=== PATIENT | female | born 1970 ===

== ENCOUNTER 2018-04-11 09:03 | Emergency (ER) | payer OTHER | END 2018-04-11 12:47 | disposition home or self-care (01) | LOC: C.ER 09:03 ==

== ENCOUNTER 2018-05-01 09:23 | Emergency (ER) | payer OTHER ==
[2018-05-01 09:43] VITALS: BP 119/77; PULSE 69; RESP 18; O2SAT 99
--- NOTE | 2018-05-01 10:20 | C.PDOC ---
History Of Present Illness 48 y/o female presents to the ER c/o sensitivity to ear b/l and itchiness to ears b/l for x2-3 days. No ear drops or medication use. Pt had similar sx in past and was told she had ear wax. Pt does not have a PMD. Pt denies ear discharge, fever and chills. Time Seen by Provider: 05/01/18 09:58 Chief Complaint (Nursing): ENT Problem History Per: Patient History/Exam Limitations: None Onset/Duration Of Symptoms: Days (x2-3) Current Symptoms Are (Timing): Still Present Past Medical History Reviewed: Historical Data, Nursing Documentation, Vital Signs Vital Signs: Last Vital Signs Temp Pulse 69 05/01/18 09:41 Resp 18 05/01/18 09:41 BP 119/77 05/01/18 09:41 Pulse Ox 99 05/01/18 09:41 Family History: States: No Known Family Hx - Social History Hx Alcohol Use: No Hx Substance Use: No - Immunization History Hx Tetanus Toxoid Vaccination: No Hx Influenza Vaccination: Yes Hx Pneumococcal Vaccination: No Review Of Systems Except As Marked, All Systems Reviewed And Found Negative. Constitutional: Negative for: Fever, Chills ENT: Positive for: Other (sensitivity and itchiness to b/l ears). Negative for: Ear Discharge Physical Exam - Physical Exam Appears: Non-toxic, No Acute Distress Skin: Warm, Dry Head: Normacephalic Eye(s): bilateral: Normal Inspection Ear(s): Left: Other (mild edema and redness to Right external auditory canal ), Bilateral: Normal (b/l TM) Cardiovascular: Rhythm Regular Respiratory: Normal Breath Sounds Neurological/Psych: Oriented x3, Normal Speech ED Course And Treatment O2 Sat by Pulse Oximetry: 99 (RA) Pulse Ox Interpretation: Normal Medical Decision Making Medical Decision Making: Initial impression: otitis externa plan: --d/c with ear drops Disposition - Disposition Referrals: William Courtney MD [Staff Provider] - Disposition: HOME/ ROUTINE Disposition Time: 10:17 Condition: GOOD Additional Instructions: Thank you for letting us take care of you today. Return to the ER if your symptoms worsen, or if any problems. Take the medication listed below as prescribed. Call the phone number listed below to make an appointment with the [facility] doctor. Prescriptions: Neomycin/Polymyxin/Hydrocortis [Cortisporin Otic Susp] 1 drop AU QID #1 bottle Instructions: Outer Ear Infection (DC) Print Language: GHANAIAN - POA Present On Arrival: None - Clinical Impression Clinical Impression: Abnormal ear sensation, Otitis externa - Scribe Statement The provider has reviewed the documentation as recorded by the Scribe Jennifer Kowalski Provider Attestation: All medical record entries made by the Scribe were at my direction and personally dictated by me. I have reviewed the chart and agree that the record accurately reflects my personal performance of the history, physical exam, medical decision making, and the department course for this patient. I have also personally directed, reviewed, and agree with the discharge instructions and disposition.
== END 2018-05-01 10:36 | disposition home or self-care (01) ==
LOC: C.ER 09:23
DX: H60.93 Unspecified otitis externa, bilateral (principal)

== ENCOUNTER 2018-06-06 09:38 | Emergency (ER) | payer OTHER ==
[2018-06-06 09:46] VITALS: TEMP 98.7
--- NOTE | 2018-06-06 10:13 | C.PDOC ---
History Of Present Illness 48 year old female with PMHx of vertigo and hemorrhoids presents to the ED complaining of right upper leg pain for one day. Reports pain is worse when she walks or bears weight on the leg. Denies prior presentation of pain. Denies any abdominal pain, back pain, or urinary symptoms. Denies any trauma, falls, or sleeping in a different position. Denies history of blood clots. Denies taking any medications for the pain. Patient also requests referral for specialist for vertigo, currently asymptomatic. Chief Complaint (Nursing): Lower Extremity Problem/Injury History Per: Patient History/Exam Limitations: no limitations Onset/Duration Of Symptoms: Days (1) Current Symptoms Are (Timing): Still Present Past Medical History Reviewed: Historical Data, Nursing Documentation, Vital Signs Vital Signs: Last Vital Signs Temp 98.7 F 06/06/18 09:41 Pulse 67 06/06/18 09:41 Resp 20 06/06/18 09:41 BP 112/73 06/06/18 09:41 Pulse Ox 100 06/06/18 09:41 - Medical History Other PMH: Vertigo, Hemorrhoids Surgical History: Other Surgeries: Hemorrhoids Family History: States: No Known Family Hx - Social History Hx Alcohol Use: No Hx Substance Use: No - Immunization History Hx Tetanus Toxoid Vaccination: No Hx Influenza Vaccination: Yes Hx Pneumococcal Vaccination: No Review Of Systems Gastrointestinal: Negative for: Abdominal Pain Genitourinary: Negative for: Dysuria, Hematuria Musculoskeletal: Positive for: Leg Pain (right upper ). Negative for: Back Pain Neurological: Negative for: Weakness, Numbness Physical Exam - Physical Exam Appears: Non-toxic, No Acute Distress Skin: Warm, Dry Head: Normacephalic Neck: Supple Chest: Symmetrical Cardiovascular: Rhythm Regular Respiratory: No Rales, No Rhonchi, No Wheezing Gastrointestinal/Abdominal: Soft, No Tenderness, No Guarding, No Rebound Extremity: Tenderness (right upper lateral leg tenderness ), Capillary Refill (less than 2 sec ), Other (Neg Carter's sign) Extremity: Bilateral: Normal Color And Temperature, Normal ROM Pulses: Left Dorsalis Pedis: Normal, Right Dorsalis Pedis: Normal Neurological/Psych: Oriented x3, Normal Speech Gait: Steady ED Course And Treatment O2 Sat by Pulse Oximetry: 100 (RA) Pulse Ox Interpretation: Normal Medical Decision Making Medical Decision Making: Impression: Right lateral upper leg pain Plan - Tylenol 650mg PO - POC Urine Preg - Venous Duplex Scan RLE - XR right hip/pelvis 1206 normal neuro exam, no vertigo imaging unremarkable vascular studies unremarkable pain improved, clear for d/c home with return indications and f/u Disposition - Disposition Referrals: Barber Bee MD [Staff Provider] - [facility] [Outside] [facility] [Outside] [facility] [Outside] Rod Sequeira MD [Staff Provider] - Disposition Time: 12:06 Condition: GOOD Additional Instructions: DARRIN ALMODOVAR, thank you for letting us take care of you today. Your provider was Ilya Barbosa and you were treated for LEG PAIN. The emergency medical care you received today was directed at your acute symptoms. If you were prescribed any medication, please fill it and take as directed. It may take several days for your symptoms to resolve. Return to the Emergency Department if your symptoms worsen, do not improve, or if you have any other problems. Please contact your doctor or call one of the physicians/clinics you have been referred to that are listed on the Patient Visit Information form that is included in your discharge packet. Bring any paperwork you were given at discharge with you along with any medications you are taking to your follow up visit. Our treatment cannot replace ongoing medical care by a primary care provider outside of the emergency department. Thank you for allowing the [facility] team to be part of your care today. If you had an X-Ray or CT scan: A Radiologist will review the ED reading if any change in treatment is needed we will contact you. If you had a blood, urine, or wound culture: It will take several days for the results, if any change in treatment is needed we will contact you. If you had an STI test: It will take 48 hours for the results. Please call after 1 week if you have not heard back. Instructions: Muscle and Bone Pain (DC), Joint Pain Forms: [facility] (Slovenian) - Clinical Impression Clinical Impression: Joint pain - Scribe Statement The provider has reviewed the documentation as recorded by the Scribe Ruby Ni All medical record entries made by the Scribe were at my direction and personally dictated by me. I have reviewed the chart and agree that the record accurately reflects my personal performance of the history, physical exam, medical decision making, and the department course for this patient. I have also personally directed, reviewed, and agree with the discharge instructions and disposition.
[2018-06-06 12:22] VITALS: BP 132/81; PULSE 84; RESP 16; O2SAT 98
--- NOTE | 2018-06-06 12:59 | RAD ---
Pelvis and right hip two views HISTORY: Pain. Comparison: Non available. Findings: Mild narrowing of the right hip joint space with subchondral sclerosis. No evidence of acute displaced fracture or dislocation. Remainder of the visualized bony pelvis demonstrates some degenerative changes in the lower lumbar spine and left hip. Calcified phleboliths in the pelvis. Impression: Negative acute. If pain persists, consider MRI.
--- NOTE | 2018-06-07 10:09 | VASCLAB ---
Date of service: 06/06/2018 PROCEDURE: Right Lower Extremity Venous Duplex Exam. HISTORY: Right leg pain PRIORS: None. TECHNIQUE: Right common femoral, femoral, popliteal and posterior tibial, peroneal and great saphenous veins were evaluated. Flow was assessed with color Doppler, compressibility, assessment of phasic flow and augmentation response. Report prepared by KERMIT Smalls FINDINGS: RIGHT: 1. Common Femoral Vein: 1.1. Compressibility - Fully compressible: Thrombus - None: Flow - Phasic: Augmentation -Normal: Reflux - None. 2. Femoral Vein: 2.1. Compressibility - Fully compressible: Thrombus - None: Flow - Phasic: Augmentation -Normal: Reflux - None. 3. Popliteal Vein: 3.1. Compressibility - Fully compressible: Thrombus - None: Flow - Phasic: Augmentation -Normal: Reflux - None. 4. Posterior Tibial Vein: 4.1. Compressibility - Fully compressible: Thrombus - None: Flow - Phasic: Augmentation -Normal: Reflux - None. 5. Peroneal Vein: 5.1. Compressibility - Fully compressible: Thrombus - None: Flow - Phasic: Augmentation -Normal: Reflux - None. 6. Great Saphenous Vein: 6.1. Compressibility - Fully compressible: Thrombus -None: Flow - Phasic: Augmentation - Normal: Reflux - None. OTHER FINDINGS: IMPRESSION: No evidence of deep or superficial vein thrombosis of the right lower extremity with excellent venous flow. Normal valve function noted of the right side. Normal venous flow noted in the left common femoral vein.
== END 2018-06-06 12:21 | disposition home or self-care (01) ==
LOC: C.ER 09:38
DX: M25.50 Pain in unspecified joint (principal)

== ENCOUNTER 2018-07-29 12:18 | Observation (INO) | payer OTHER ==
[2018-07-29] MEDS ORDERED: Sodium Chloride 0.9% 500 ML IV ONE ×2 (13:02→13:28)
--- NOTE | 2018-07-29 13:11 | C.PDOC ---
History Of Present Illness Patient is a 48 year old female, with PMHx of an ulcer, who presents to the ED c/o dizziness, headache, and numbness to her right foot that began yesterday afternoon. Patient also reports LUQ abdominal pain. Patient is a poor historian. She denies any fever, CP, SOB, nausea, vomiting. Time Seen by Provider: 07/29/18 12:49 Chief Complaint (Nursing): Headache Past Medical History Reviewed: Historical Data, Nursing Documentation, Vital Signs Vital Signs: Last Vital Signs Temp 97.7 F 07/29/18 12:51 Pulse 76 07/29/18 12:51 Resp 18 07/29/18 12:51 BP 112/81 07/29/18 12:51 Pulse Ox 97 07/29/18 12:51 Primary Care Provider: Max Lobo Surg - Medical History PMH: No Chronic Diseases Surgical History: Family History: States: No Known Family Hx - Social History Hx Alcohol Use: No Hx Substance Use: No - Immunization History Hx Tetanus Toxoid Vaccination: No Hx Influenza Vaccination: Yes Hx Pneumococcal Vaccination: No Review Of Systems Except As Marked, All Systems Reviewed And Found Negative. Constitutional: Negative for: Fever, Chills Cardiovascular: Negative for: Chest Pain Respiratory: Negative for: Shortness of Breath Gastrointestinal: Positive for: Abdominal Pain (LUQ). Negative for: Nausea, Vomiting Neurological: Positive for: Numbness (right foot), Headache, Dizziness Physical Exam - Physical Exam Appears: Non-toxic, Other (anxious appearing ) Skin: Normal Color, Warm, Dry Head: Atraumatic, Normacephalic Oral Mucosa: Moist Neck: Normal ROM, Supple Chest: Symmetrical, No Deformity Cardiovascular: Rhythm Regular, No Murmur Respiratory: Normal Breath Sounds, No Rales, No Rhonchi, No Wheezing Gastrointestinal/Abdominal: Soft, No Tenderness Extremity: Normal ROM Neurological/Psych: Oriented x3, Normal Speech, Normal Motor, Normal Sensation, Normal Reflexes ED Course And Treatment - Laboratory Results Result Diagrams: 07/29/18 13:32 07/29/18 13:32 ECG: Interpreted By Me, Viewed By Me ECG Rhythm: Sinus Rhythm Interpretation Of ECG: No ST/T wave changes Rate From EC O2 Sat by Pulse Oximetry: 97 (on RA) Pulse Ox Interpretation: Normal - Other Rad CXR X-Ray: Viewed By Me, Read By Radiologist Interpretation: HISTORY: chest pain. COMPARISON: None available. TECHNIQUE: Chest, one view. FINDINGS: LUNGS: No focal consolidation. Please note that chest x-ray has limited sensitivity for the detection of pulmonary masses. PLEURA: No significant pleural effusion identified. No definite pneumothorax . CARDIOVASCULAR: Heart size appears within normal limits. No significant athe rosclerotic calcification present. OSSEOUS STRUCTURES: No acute osseous abnormality identified. VISUALIZED UPPER ABDOMEN: Unremarkable. OTHER FINDINGS: None. IMPRESSION: No focal consolidation. - CT Scan/US CT Head Other Rad Studies (CT/US): Read By Radiologist, Radiology Report Reviewed CT/US Interpretation: Date of service: 07/29/2018. PROCEDURE: CT HEAD WITHOUT CONTRAST. HISTORY: Headache. Dizziness. COMPARISON: 04/11/2018. TECHNIQUE: Axial computed tomography images were obtained through the head/brain without intravenous contrast. Radiation dose: Total exam DLP = 973.1 mGy-cm. This CT exam was performed using one or more of the following dose reduction techniques: Automated exposure control, adjustment of the mA and/or kV according to patient size, and/or use of iterative reconstruction technique. FINDINGS: HEMORRHAGE: No intracranial hemorrhage. Streak artifact within the inferior frontal and anterior left temporal lobe somewhat limit evaluation. BRAIN: No mass effect or edema. No atrophy or chronic microvascular ischemic changes. VENTRICLES: Unremarkable. No hydrocephalus. CALVARIUM: Unremarkable. PARANASAL SINUSES: Unremarkable as visualized. No significant inflammatory changes. MASTOID AIR CELLS: Unremarkable as visualized. No inflammatory changes. OTHER FINDINGS: Streak artifact within the inferior frontal and anterior left temporal lobe somewhat limit evaluation. IMPRESSION: No acute intracranial abnormality. If symptoms persists, consider correlation with MRI. NIHSS Stroke Scale - Date/Time Evaluation Performed Date Performed: 07/29/18 Time Performed: 14:40 - How Severe is the Stoke Level of Consciousness: 0=Alert LOC to Questions: 0=Both comments correct LOC to commands: 0=Obeys both correctly Best Gaze: 0=Normal Visual: 0=No visual loss Facial: 0=Normal Motor Arm - Left: 0=No drift Motor Arm - Right: 0=No drift Motor Leg - Left: 0=No drift Motor Leg - Right: 0=No drift Limb Ataxia: 0=Absent Sensory: 0=Normal Best Language: 0=No aphasia Dysarthia: 0=Normal articulation Extinction & Inattention (Neglect): 0=Normal, no object Score: 0 rTPA Inclusion/Exclusion - Refusal of Treatment Patient Refused Treatment: No - Inclusion Criteria for Altepase All of the below criteria for inclusion were reviewed: Yes Patient is 18 years or Older: Yes The Clinical Diagnosis of Ischemic Stroke That is Causing a Potentially Disabling Neurological Deficit: Yes Time of Onset is Well Established to be Less Than 270 Minute Before Treatment Would Begin: Yes Risk/Benefit Discussed With Patient/Family Member Present: Yes Medical Decision Making Medical Decision Making: ro tia/cva. metabolic etiologyPlan: CAT Head EKG Labs CXR UA Tylenol 975mg PO Protonix 40mg IVP IV Fluids low nih outside window not tpa candidate. discussed with dr garsia. recommends asa. accepted dr glez. Disposition - Disposition Disposition: HOSPITALIZED Disposition Time: 16:00 Condition: STABLE - Clinical Impression Clinical Impression: Headache, Numbness of foot - Scribe Statement The provider has reviewed the documentation as recorded by the Scribe Janina West All medical record entries made by the Scribe were at my direction and personally dictated by me. I have reviewed the chart and agree that the record accurately reflects my personal performance of the history, physical exam, medical decision making, and the department course for this patient. I have also personally directed, reviewed, and agree with the discharge instructions and disposition. Decision To Admit - Pt Status Changed To: Hospital Disposition Of: Observation - . Bed Request Type: Telemetry Admitting Physician: Ginger Glez Patient Diagnosis: Headache, Numbness of foot, Dizziness
[2018-07-29 13:37] LABS: BASO % 0.6 % (0.0-2.0); EOS # 0.1 K/uL (0.0-0.7); EOS % 2.7 % (0.0-4.0); HEMOGLOBIN 12.7 g/dL (11.0-16.0); LYMPH # 1.7 K/uL (1.0-4.3); LYMPH % 34.2 % (20.0-40.0); MEAN CELL VOLUME 95.6 fL (81.0-99.0); MEAN CORPUSCULAR HEMOGLOBIN 32.4 pg (27.0-31.0); MEAN CORPUSCULAR HGB CONC 33.9 g/dL (33.0-37.0); MEAN PLATELET VOLUME 8.9 fL (7.2-11.7); MONO # 0.4 K/uL (0.0-0.8); MONO % 7.4 % (0.0-10.0); NEUT # 2.7 K/uL (1.8-7.0); NEUT % 55.1 % (50.0-75.0); NRBC % 0.1 % (0.0-2.0); RBC 3.92 Mil/uL (3.80-5.20); RED CELL DISTRIBUTION WIDTH 12.9 % (11.5-14.5); WHITE BLOOD COUNT 4.9 K/uL (4.8-10.8)
[2018-07-29 13:44] LABS: SQUAMOUS EPITHIAL 1 /hpf (0-5); URINE BILIRUBIN NEGATIVE (NEGATIVE); URINE BLOOD 1+ (NEGATIVE); URINE CLARITY Clear (Clear); URINE COLOR Straw (YELLOW); URINE GLUCOSE (UA) NORMAL (Normal); URINE LEUKOCYTE ESTERASE NEG Leu/uL (Negative); URINE PROTEIN NEGATIVE (NEGATIVE); URINE UROBILINOGEN NORMAL mg/dL (0.2-1.0)
[2018-07-29 13:50] LABS: HCG,QUALITATIVE URINE NEGATIVE (NEGATIVE)
--- NOTE | 2018-07-29 13:50 | CT ---
Date of service: 07/29/2018 PROCEDURE: CT HEAD WITHOUT CONTRAST. HISTORY: Headache. Dizziness. COMPARISON: 04/11/2018 TECHNIQUE: Axial computed tomography images were obtained through the head/brain without intravenous contrast. Radiation dose: Total exam DLP = 973.1 mGy-cm. This CT exam was performed using one or more of the following dose reduction techniques: Automated exposure control, adjustment of the mA and/or kV according to patient size, and/or use of iterative reconstruction technique. FINDINGS: HEMORRHAGE: No intracranial hemorrhage. Streak artifact within the inferior frontal and anterior left temporal lobe somewhat limit evaluation. BRAIN: No mass effect or edema. No atrophy or chronic microvascular ischemic changes. VENTRICLES: Unremarkable. No hydrocephalus. CALVARIUM: Unremarkable. PARANASAL SINUSES: Unremarkable as visualized. No significant inflammatory changes. MASTOID AIR CELLS: Unremarkable as visualized. No inflammatory changes. OTHER FINDINGS: Streak artifact within the inferior frontal and anterior left temporal lobe somewhat limit evaluation. IMPRESSION: No acute intracranial abnormality. If symptoms persists, consider correlation with MRI.
[2018-07-29 13:56] LABS: INR 1.1; PARTIAL THROMBOPLASTIN TIME 30.9 SECONDS (21-34); PROTHROMBIN TIME 12.5 SECONDS (9.7-12.2)
[2018-07-29 14:12] LABS: ALB/GLOB RATIO 1.4 (1.0-2.1); ALBUMIN 4.2 g/dL (3.5-5.0); ALT/SGPT 23 U/L (9-52); AST/SGOT 23 U/L (14-36); BLOOD UREA NITROGEN 12 mg/dL (7-17); CALCIUM 9.6 mg/dl (8.6-10.4); GFR NON-AFRICAN AMERICAN > 60; LIPASE 127 U/L (23-300)
--- NOTE | 2018-07-29 14:46 | RAD ---
HISTORY: chest pain COMPARISON: None available. TECHNIQUE: Chest, one view. FINDINGS: LUNGS: No focal consolidation. Please note that chest x-ray has limited sensitivity for the detection of pulmonary masses. PLEURA: No significant pleural effusion identified. No definite pneumothorax . CARDIOVASCULAR: Heart size appears within normal limits. No significant atherosclerotic calcification present. OSSEOUS STRUCTURES: No acute osseous abnormality identified. VISUALIZED UPPER ABDOMEN: Unremarkable. OTHER FINDINGS: None. IMPRESSION: No focal consolidation.
--- NOTE | 2018-07-29 15:30 | CP.PCM.HP ---
History of Present Illness - History of Present Illness History of Present Illness: PGY-1 Medicine H&P for Dr. Glez CC: Dizziness HPI: Patient is a 48 year old female with a past medical history of seizures who presents to the ED today with dizziness, generalized weakness, and right foot weakness. Symptoms began when she was at work yesterday while lifting boxes. Patients complains of dry mouth and bilateral blurry vision. Patient states that all her symptoms have resolved. She admits to be under a lot of stress, she states her family in [facility] has been having trouble with their living conditions. She admits to be only sleeping for 4-5 hours each night for the last 3 months. Patient denies any recent travel, recent sickness, or sick contacts. Denies fever, chills, chest pain, SOB, nausea, vomiting, constipation, or diarrhea. 12-point ROS reviewed and negative except mentioned in HPI. PMHx: Epilepsy (between 9-12 years old) PSH: 2 C-sections, hemorroidectomy Allergies: NKDA FH: Father with kidney disease, uncle with diabetes. SH: Denies tobacco, alcohol, and illicit drugs. Lives with and children. Works in a factory. Medications: Denies PMD: Dr. Sanders Present on Admission - Present on Admission Any Indicators Present on Admission: No History of DVT/PE: No History of Uncontrolled Diabetes: No Urinary Catheter: No Decubitus Ulcer Present: No Past Patient History - Infectious Disease Hx of Infectious Diseases: None - Past Social History Smoking Status: Never Smoked - PSYCHIATRIC Hx Substance Use: No - SURGICAL HISTORY Hx Section: Yes (x 1) Other/Comment: haemorroidectomy - ANESTHESIA Hx Anesthesia: No Hx Anesthesia Reactions: No Meds Allergies/Adverse Reactions: Allergies Allergy/AdvReac Type Severity Reaction Status Date / Time No Known Allergies Allergy Verified 07/29/18 12:42 Physical Exam - Constitutional Appears: Well, Non-toxic, No Acute Distress - Head Exam Head Exam: ATRAUMATIC, NORMAL INSPECTION - Eye Exam Eye Exam: EOMI, Normal appearance, PERRL Pupil Exam: NORMAL ACCOMODATION - ENT Exam ENT Exam: Mucous Membranes Dry - Neck Exam Neck exam: Positive for: Normal Inspection - Respiratory Exam Respiratory Exam: Clear to Auscultation Bilateral, NORMAL BREATHING PATTERN. absent: Rales, Rhonchi, Wheezes, Respiratory Distress - Cardiovascular Exam Cardiovascular Exam: REGULAR RHYTHM, +S1, +S2. absent: Bradycardia, Tachycardia, Gallop, Rubs, Systolic Murmur - GI/Abdominal Exam GI & Abdominal Exam: Normal Bowel Sounds, Soft. absent: Distended, Firm, Guarding, Tenderness - Extremities Exam Extremities exam: Negative for: calf tenderness, normal inspection, pedal edema - Back Exam Back exam: NORMAL INSPECTION. absent: CVA tenderness (L), CVA tenderness (R) - Neurological Exam Neurological exam: Alert, CN II-XII Intact, Normal Gait, Oriented x3, Reflexes Normal Additional comments: Muscle strength 5/5 and sensations intact in all extremities. No pronator drift noted. - Psychiatric Exam Psychiatric exam: Anxious - Skin Skin Exam: Dry, Intact, Normal Color, Warm Results - Vital Signs Recent Vital Signs: Last Vital Signs Temp 97.7 F 07/29/18 12:51 Pulse 67 07/29/18 14:31 Resp 16 07/29/18 14:31 BP 111/76 07/29/18 14:31 Pulse Ox 97 07/29/18 15:21 - Labs Result Diagrams: 07/29/18 13:32 07/29/18 13:32 Labs: Laboratory Results - last 24 hr 07/29/18 07/29/18 07/29/18 13:32 13:32 13:32 WBC 4.9 RBC 3.92 Hgb 12.7 Hct 37.4 MCV 95.6 MCH 32.4 H MCHC 33.9 RDW 12.9 Plt Count 264 MPV 8.9 Neut % (Auto) 55.1 Lymph % (Auto) 34.2 Cottle % (Auto) 7.4 Eos % (Auto) 2.7 Baso % (Auto) 0.6 Neut # (Auto) 2.7 Lymph # (Auto) 1.7 Cottle # (Auto) 0.4 Eos # (Auto) 0.1 Baso # (Auto) 0.0 PT 12.5 H INR 1.1 APTT 30.9 Sodium Potassium Chloride Carbon Dioxide Anion Gap BUN Creatinine Est GFR ( Amer) Est GFR (Non-Af Amer) Random Glucose Calcium Total Bilirubin AST ALT Alkaline Phosphatase Troponin I Total Protein Albumin Globulin Albumin/Globulin Ratio Lipase Urine Color Straw Urine Clarity Clear Urine pH 7.0 Ur Specific [place] 1.003 Urine Protein Negative Urine Glucose (UA) Normal Urine Ketones Negative Urine Blood 1+ H Urine Nitrate Negative Urine Bilirubin Negative Urine Urobilinogen Normal Ur Leukocyte Esterase Neg Urine WBC (Auto) < 1 Urine RBC (Auto) < 1 Ur Squamous Epith Cells 1 Urine HCG, Qual Negative 07/29/18 13:32 WBC RBC Hgb Hct MCV MCH MCHC RDW Plt Count MPV Neut % (Auto) Lymph % (Auto) Cottle % (Auto) Eos % (Auto) Baso % (Auto) Neut # (Auto) Lymph # (Auto) Cottle # (Auto) Eos # (Auto) Baso # (Auto) PT INR APTT Sodium 139 Potassium 4.6 Chloride 102 Carbon Dioxide 28 Anion Gap 14 BUN 12 Creatinine 0.5 L Est GFR ( Amer) > 60 Est GFR (Non-Af Amer) > 60 Random Glucose 100 D Calcium 9.6 Total Bilirubin 0.5 AST 23 ALT 23 Alkaline Phosphatase 67 Troponin I < 0.0120 Total Protein 7.1 Albumin 4.2 Globulin 2.9 Albumin/Globulin Ratio 1.4 Lipase 127 Urine Color Urine Clarity Urine pH Ur Specific [place] Urine Protein Urine Glucose (UA) Urine Ketones Urine Blood Urine Nitrate Urine Bilirubin Urine Urobilinogen Ur Leukocyte Esterase Urine WBC (Auto) Urine RBC (Auto) Ur Squamous Epith Cells Urine HCG, Qual Assessment & Plan - Assessment and Plan (Free Text) Assessment: Patient is a 48 year old female with no significant past medical history presenting with dizziness. Plan: Dizziness, generalized weakness - Rule out CVA vs TIA vs Lupus vs dehydration vs sleep deprivation - Head CT: no acute findings - NIHSS score: 0 - CXR: no acute findings - Brain MRI: pending - Carotid ultrasound: pending - Neurology consulted, Dr. Marquez - Start NS @ 100 mL/hr - ASA daily - Follow up TSH, Free T4, CATHERINE, ESR, CRP, HbA1C, Lipid panel, Vit B12, folate Hx of seizures - Rule out seizures vs sleep deprivation - Neurology consulted, Dr. Marquez - Bedside EEG Anxiety - Psychiatry consulted, Dr. Quinn Prophylaxis: - DVT: Lovenox 40mg SC QD - GI: not indicated Case discussed with attending, Dr. Glez. Mika Azul, PGY-1
[2018-07-30] MEDS: Sodium Chloride 0.9% 1,000 ML IV SCH (04:45)
[2018-07-30 07:39] LABS: BASO % 0.5 % (0.0-2.0); EOS # 0.1 K/uL (0.0-0.7); EOS % 2.5 % (0.0-4.0); HEMOGLOBIN 12.6 g/dL (11.0-16.0); LYMPH # 1.4 K/uL (1.0-4.3); LYMPH % 33.8 % (20.0-40.0); MEAN CELL VOLUME 95.5 fL (81.0-99.0); MEAN CORPUSCULAR HEMOGLOBIN 32.3 pg (27.0-31.0); MEAN CORPUSCULAR HGB CONC 33.9 g/dL (33.0-37.0); MEAN PLATELET VOLUME 8.9 fL (7.2-11.7); MONO # 0.4 K/uL (0.0-0.8); MONO % 9.8 % (0.0-10.0); NEUT # 2.2 K/uL (1.8-7.0); NEUT % 53.4 % (50.0-75.0); RBC 3.91 Mil/uL (3.80-5.20); RED CELL DISTRIBUTION WIDTH 12.6 % (11.5-14.5); WHITE BLOOD COUNT 4.2 K/uL (4.8-10.8)
[2018-07-30 07:57] LABS: ALB/GLOB RATIO 1.3 (1.0-2.1); ALBUMIN 3.7 g/dL (3.5-5.0); ALT/SGPT 17 U/L (9-52); AST/SGOT 20 U/L (14-36); BLOOD UREA NITROGEN 11 mg/dL (7-17); CALCIUM 8.1 mg/dl (8.6-10.4); GFR NON-AFRICAN AMERICAN > 60; HDL CHOLESTEROL 44 mg/dL (30-70)
[2018-07-30 08:09] LABS: LDL CHOLESTEROL 92 mg/dL (0-129)
[2018-07-30 08:10] VITALS: O2SAT 94
[2018-07-30 08:56] LABS: FOLATE 13.8 ng/mL
--- NOTE | 2018-07-30 09:56 | MRI ---
Date of service: 07/30/2018 PROCEDURE: MRI BRAIN WITHOUT CONTRAST HISTORY: r/o cva COMPARISON: CT head without contrast from 07/29/2018. TECHNIQUE: Multiplanar, multisequence MR images of the brain were obtained without intravenous contrast enhancement. FINDINGS: HEMORRHAGE: None DWI: No evidence of an acute or early subacute infarction. BRAIN PARENCHYMA: There is a small T2/FLAIR hyperintense focus in the right parietal subcortical white matter. There is no mass, mass effect or abnormal extra-axial fluid collection. There is no territorial infarction. The midline sagittal structures are normal. VENTRICLES: There is mild age advanced global parenchymal volume loss and proportionate enlargement of the ventricles and cortical sulci. CRANIUM: There is normal bone marrow signal pattern. ORBITS: Grossly unremarkable. PARANASAL SINUSES/MASTOIDS: Predominantly clear. VASCULAR SYSTEM: There are normal signal voids in the larger intracranial arteries. OTHER FINDINGS: None. IMPRESSION: No acute intracranial abnormality. Specifically, no evidence for acute infarction. Mild age advanced global parenchymal volume loss.
--- NOTE | 2018-07-30 09:59 | CP.PCM.CON ---
<Haris Corbett - Last Filed: 07/30/18 17:12> History of Present Illness - History of Present Illness History of Present Illness: PGY-1 Neurology consult note for Dr Marquez Patient is a 48 year old [place] female with past medical history of seizures, presenting to the ER yesterday 07/29 for dizziness that started two days ago. 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 Patient states she feels as such when working in the line as the work is more demanding, there is loud noises and she is carrying heavy boxes. Patient admits to having difficulty catching sleep and remaining asleep, reports about 4 hours of sleep at night. Admits to tingling in pinky toe left foot, blurry vision. Patient denies headaches, generalized weakness, denies loss of consciousness, major changes in vision or hearing, denies any recent trauma to head. Admits to history of convulsion at age 11 after a dog tackle patient down to floor and loss consciousness with reports seizures, and had temporary loss of vision lasting 10 seconds. Patient was on antiseizure medications from ages [age], patient has not had another seizure since then. Denies fever, chills, chest pain, nausea, vomiting, urinary complaints. 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 Past Patient History - Infectious Disease Hx of Infectious Diseases: None - Past Social History Smoking Status: Never Smoked - PSYCHIATRIC Hx Substance Use: No - SURGICAL HISTORY Hx Section: Yes (x 1) Other/Comment: haemorroidectomy - ANESTHESIA Hx Anesthesia: No Hx Anesthesia Reactions: No Meds Home Medications: Home Medication List Medication Instructions Recorded Confirmed Type Famotidine [Pepcid] 20 mg PO BID #14 tab 07/30/18 Rx Mirtazapine [Remeron] 15 mg PO HS #30 tab 07/30/18 Rx Allergies/Adverse Reactions: Allergies Allergy/AdvReac Type Severity Reaction Status Date / Time No Known Allergies Allergy Verified 07/29/18 12:42 - Medications Medications: Current Medications Acetaminophen (Tylenol 325mg Tab) 650 mg PO Q6 PRN PRN Reason: Headache Aspirin (Aspirin Chewable) 81 mg PO DAILY [facility] Enoxaparin Sodium (Lovenox) 40 mg SC DAILY [facility] Sodium Chloride (Sodium Chloride 0.9%) 1,000 mls @ 100 mls/hr IV .Q10H [facility] Last Admin: 07/30/18 04:45 Dose: 100 mls/hr Pneumococcal Polyvalent Vaccine (Pneumovax 23 Vaccine) 0.5 ml IM .ONCE ONE Stop: 07/31/18 10:01 Physical Exam - Constitutional Appears: Non-toxic, No Acute Distress - Head Exam Head Exam: ATRAUMATIC, NORMAL INSPECTION, NORMOCEPHALIC - Eye Exam Eye Exam: EOMI, Normal appearance, PERRL Pupil Exam: NORMAL ACCOMODATION, PERRL - ENT Exam ENT Exam: Mucous Membranes Moist, Normal Exam - Neurological Exam Neurological exam: Alert, CN II-XII Intact, Normal Gait, Oriented x3, Reflexes Normal - Expanded Neurological Exam Expanded Patient oriented to: person, place, time Speech: Fluid Speech Cranial nerves: EOM's Intact: Normal, Facial Palsey w/Forehead Movement: Normal, Facial Palsey w/o Forehead Movement: Normal, Facial Sensation: Normal, Nystagmus: Normal, Tongue Deviation: Normal Ataxia: No Cerebellar Function: Finger to Nose: Normal, Romberg: Normal Upper motor neuron: Pronator Drift: Normal Sensory exam: Lower Extremity Light Touch: Normal, Upper Extremity Light Touch: Normal Neuro motor strength exam: Left Upper Extremity: 5, Right Upper Extremity: 5, Left Lower Extremity: 5, Right Lower Extremity: 5 DTR: Brachioradialis Left: 2+, Brachioradialis Right: 2+, Patellar Left: 2+, Patellar Right: 2+ - Psychiatric Exam Psychiatric exam: Normal Affect, Normal Mood Results - Vital Signs Recent Vital Signs: Last Vital Signs Temp 98.8 F 07/30/18 07:00 Pulse 80 07/30/18 07:00 Resp 18 07/30/18 07:00 BP 112/76 07/30/18 07:00 Pulse Ox 94 L 07/30/18 07:00 - Labs Result Diagrams: 07/30/18 07:30 07/30/18 07:30 Labs: Laboratory Results - last 24 hr 07/29/18 07/29/18 07/29/18 13:32 13:32 13:32 WBC 4.9 RBC 3.92 Hgb 12.7 Hct 37.4 MCV 95.6 MCH 32.4 H MCHC 33.9 RDW 12.9 Plt Count 264 MPV 8.9 Neut % (Auto) 55.1 Lymph % (Auto) 34.2 [place] % (Auto) 7.4 Eos % (Auto) 2.7 Baso % (Auto) 0.6 Neut # (Auto) 2.7 Lymph # (Auto) 1.7 [place] # (Auto) 0.4 Eos # (Auto) 0.1 Baso # (Auto) 0.0 ESR PT 12.5 H INR 1.1 APTT 30.9 Sodium Potassium Chloride Carbon Dioxide Anion Gap BUN Creatinine Est GFR ( Amer) Est GFR (Non-Af Amer) Random Glucose Hemoglobin A1c Calcium Phosphorus Magnesium Total Bilirubin AST ALT Alkaline Phosphatase Total Creatine Kinase Troponin I Total Protein Albumin Globulin Albumin/Globulin Ratio Triglycerides Cholesterol LDL Cholesterol Direct HDL Cholesterol Lipase Vitamin B12 Folate Free T4 TSH 3rd Generation Urine Color Straw Urine Clarity Clear Urine pH 7.0 Ur Specific [place] 1.003 Urine Protein Negative Urine Glucose (UA) Normal Urine Ketones Negative Urine Blood 1+ H Urine Nitrate Negative Urine Bilirubin Negative Urine Urobilinogen Normal Ur Leukocyte Esterase Neg Urine WBC (Auto) < 1 Urine RBC (Auto) < 1 Ur Squamous Epith Cells 1 Urine HCG, Qual Negative 07/29/18 07/29/18 07/30/18 13:32 22:57 07:30 WBC 4.2 L RBC 3.91 Hgb 12.6 Hct 37.3 MCV 95.5 MCH 32.3 H MCHC 33.9 RDW 12.6 Plt Count 263 MPV 8.9 Neut % (Auto) 53.4 Lymph % (Auto) 33.8 [place] % (Auto) 9.8 Eos % (Auto) 2.5 Baso % (Auto) 0.5 Neut # (Auto) 2.2 Lymph # (Auto) 1.4 [place] # (Auto) 0.4 Eos # (Auto) 0.1 Baso # (Auto) 0.0 ESR 10 PT INR APTT Sodium 139 Potassium 4.6 Chloride 102 Carbon Dioxide 28 Anion Gap 14 BUN 12 Creatinine 0.5 L Est GFR ( Amer) > 60 Est GFR (Non-Af Amer) > 60 Random Glucose 100 D Hemoglobin A1c Calcium 9.6 Phosphorus Magnesium Total Bilirubin 0.5 AST 23 ALT 23 Alkaline Phosphatase 67 Total Creatine Kinase Troponin I < 0.0120 < 0.0120 Total Protein 7.1 Albumin 4.2 Globulin 2.9 Albumin/Globulin Ratio 1.4 Triglycerides Cholesterol LDL Cholesterol Direct HDL Cholesterol Lipase 127 Vitamin B12 Folate Free T4 TSH 3rd Generation Urine Color Urine Clarity Urine pH Ur Specific [place] Urine Protein Urine Glucose (UA) Urine Ketones Urine Blood Urine Nitrate Urine Bilirubin Urine Urobilinogen Ur Leukocyte Esterase Urine WBC (Auto) Urine RBC (Auto) Ur Squamous Epith Cells Urine HCG, Qual 07/30/18 07/30/18 07/30/18 07:30 07:30 07:30 WBC RBC Hgb Hct MCV MCH MCHC RDW Plt Count MPV Neut % (Auto) Lymph % (Auto) [place] % (Auto) Eos % (Auto) Baso % (Auto) Neut # (Auto) Lymph # (Auto) [place] # (Auto) Eos # (Auto) Baso # (Auto) ESR PT INR APTT Sodium 139 Potassium 3.8 Chloride 105 Carbon Dioxide 24 Anion Gap 13 BUN 11 Creatinine 0.5 L Est GFR ( Amer) > 60 Est GFR (Non-Af Amer) > 60 Random Glucose 86 Hemoglobin A1c 5.5 Calcium 8.1 L Phosphorus 3.5 Magnesium 1.6 Total Bilirubin 0.7 AST 20 ALT 17 Alkaline Phosphatase 65 Total Creatine Kinase 34 Troponin I < 0.0120 Total Protein 6.5 Albumin 3.7 Globulin 2.8 Albumin/Globulin Ratio 1.3 Triglycerides 72 Cholesterol 151 LDL Cholesterol Direct 92 HDL Cholesterol 44 Lipase Vitamin B12 459 Folate 13.8 Free T4 1.24 TSH 3rd Generation 0.52 Urine Color Urine Clarity Urine pH Ur Specific [place] Urine Protein Urine Glucose (UA) Urine Ketones Urine Blood Urine Nitrate Urine Bilirubin Urine Urobilinogen Ur Leukocyte Esterase Urine WBC (Auto) Urine RBC (Auto) Ur Squamous Epith Cells Urine HCG, Qual Assessment & Plan - Assessment and Plan (Free Text) Plan: 48 year old female with pmhx of seizure as a child, otherwise no medical history presenting with dizziness and generalized weakness. CT and MRI shows no acute IC abnormalities, no acute infarction, CTA head and neck negative for stenosis in extracranial carotid arteries bilaterally. Symptoms most likely related to recent work related/emotional stress. No seizure activity suspected. Patient can resume activities as tolerated. Sleep medications as per psych recs. Advised to continue following up with PMD for management of medical issues. clear to discharge home as per neuro. Plan d/w Dr Jimmy Corbett, PGY-1 - Date & Time Date: 07/30/18 Time: 10:30 <Arturo Marquez - Last Filed: 08/02/18 16:37> Results - Vital Signs Recent Vital Signs: Last Vital Signs Temp 98.2 F 07/30/18 16:00 Pulse 74 07/30/18 16:00 Resp 20 07/30/18 16:00 BP 109/72 07/30/18 16:00 Pulse Ox 94 L 07/30/18 16:00 - Labs Result Diagrams: 07/30/18 07:30 07/30/18 07:30 Assessment & Plan - Assessment and Plan (Free Text) Plan: All medical record entries made by the Resident were at my direction and personally dictated by me. I have reviewed the chart and agree that the record accurately reflects my personal performance of the history, physical exam, medical decision making, and the department course for this patient. I have also personally directed, reviewed, and agree with the discharge instructions and disposition. Miss Vasquez is now back to [facility] normal neuroimaging, and has a history of epilepsy as a child. I do not feel that she had a true seizure today. I feel that she is stable for discharge. Dr. Marquez Neurology
[2018-07-30] MEDS ORDERED: Enoxaparin 40 mg Syringe SC SCH (10:00)
--- NOTE | 2018-07-30 11:29 | PCM.PSYCH ---
Initial Psychiatric Evaluation - Initial Psychiatric Evaluation Type of Admission: Voluntary Legal Status: Capacity Chief Complaint (in patient's own words): "Nervous" History of Present Illness and Precipitating Events: The pt is seen, chart reviewed, and case discussed. The consult was requested for patients anxiety sxs. 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 She has been feeling stressed and worn out lately because of long work hours, a recent switch to a louder position in the factory floor, and not getting to spend time with her . She hasnt been sleeping well, getting about 4 to 5 hours each night for the past 3 months. She is also worried about her family back in [facility] because their living conditions havent been good. She denies hearing voices, seeing things that are not there, having paranoid thoughts, and suicidal ideations. Pt attributes her symptoms to the extra stress she has been under lately. Has mild dep/anx sxs She denies drug, tobacco, and alcohol use. Past psych hx: denies Fam psych hx: denies PMHx: multiple sclerosis, epilepsy (9 to 14 years old) PSHx: 2 C-sections, hemorrhoidectomy All: NKDA Current meds: denies Current Medications: Active Medications Generic Name Dose Route Start Last Admin Trade Name Freq PRN Reason Stop Dose Admin Acetaminophen 650 mg 07/29/18 16:40 Tylenol 325mg Tab PO Q6 PRN Headache Aspirin 81 mg 07/30/18 10:00 07/30/18 11:17 Aspirin Chewable PO 81 mg DAILY [facility] Administration Enoxaparin Sodium 40 mg 07/30/18 10:00 07/30/18 11:18 Lovenox SC 40 mg DAILY [facility] Administration Sodium Chloride 1,000 mls @ 100 mls/hr 07/29/18 17:00 07/30/18 04:45 Sodium Chloride 0.9% IV 100 mls/hr .Q10H [facility] Administration Mirtazapine 15 mg 07/30/18 22:00 Remeron PO HS [facility] Pneumococcal Polyvalent Vaccine 0.5 ml 07/31/18 10:00 Pneumovax 23 Vaccine IM 07/31/18 10:01 .ONCE ONE Past Psychiatric History - Past Psychiatric History Previous Treatment History: None Pertinent Medical Hx (Current Medical&Sleep Prob, Allergies): Allergies Allergy/AdvReac Type Severity Reaction Status Date / Time No Known Allergies Allergy Verified 07/29/18 12:42 RX: No Known Home Med 06/06/18 Review of Systems - Psychiatric Psychiatric: Abnormal Sleep Pattern, Anhedonia, Anxiety, Depression, Difficulty Concentrating. absent: Hallucinations, Homicidal Ideation, Hopelessness, Irritability Mental Status Examination - Personal Presentation Personal Presentation: Looks stated age - Affect Affect: Constricted - Motor Activity Motor Activity: Calm - Reliability in Providing Information Reliability in Providing Information: Good - Speech Speech: Organized - Mood Mood: Depressed, Anxious - Formal Thought Process Formal Thought Process: No Impairment - Cognitive Functions Orientation: Person, Place, Situation, Time Sensorium: Alert Attention/Concentration: Easily distracted Estimate of Intelligence: Average Judgement: Intact, as evidence by: Insight regarding need for hospitalization Memory: Recent intact, as evidence by: Ability to recall events of the day, Remote intact, as evidenced by: Abilit to recall sig. life events - Risk Risk: Diminished functioning - Strength & Assets Inventory Strength & Assets Inventory: Family support, Employment history, Cooperative - Limitations Limitations: Other DSM 5 DX - DSM 5 DSM 5 Diagnosis: Adjustment d/o with anx and dep - Recommended/Plan of Treatment Treatment Recommendations and Plan of Treatment: Remeron for insomnia and depressive sxs Support and psychoed Refer to yoni tx if she agrees Psych will sign off 33 min
--- NOTE | 2018-07-30 14:16 | VASCLAB ---
Date of service: 07/30/2018 PROCEDURE: Carotid Duplex Exam. HISTORY: r/o cva COMPARISON: None available. TECHNIQUE: Grayscale and duplex Doppler evaluation of the cervical carotid and vertebral arteries were performed. The common carotid, carotid bifurcations and cervical Internal Carotid Artery (ICA) and proximal External Carotid Artery (ECA) were evaluated. The vertebral arteries were evaluated for gross patency and flow direction. Report prepared by Moraima Abdi RDCS, S FINDINGS: RIGHT CAROTID ARTERIES: 1. Common Carotid Artery: No significant focal plaque formation of the right common carotid artery. Maximum Peak Systolic velocity: 71 cm/sec: End-diastolic velocity 17 cm/sec. 2. Carotid Bifurcation: plaque formation. Maximum Peak Systolic velocity: 99 cm/sec: End-diastolic velocity 38 cm/sec. 3. Internal Carotid Artery: Plaque description: 3.1. Proximal Segment: Peak systolic velocity 116 cm/sec: End-diastolic velocity 54 cm/sec - % stenosis 3.2. Middle Segment: Peak systolic velocity 114 cm/sec: End-diastolic velocity 45 cm/sec - % stenosis 3.3. Distal Segment: Peak systolic velocity 96 cm/sec: End-diastolic velocity 41 cm/sec - % stenosis 4. External Carotid Artery: No significant focal plaque formation. Peak systolic velocity 86 cm/sec 5. ICA/CCA Ratio: 1.9 LEFT CAROTID ARTERIES: 1. Common Carotid Artery: No significant focal plaque formation of the left common carotid artery. Maximum Peak Systolic velocity: 115 cm/sec: End-diastolic velocity 26 cm/sec. 2. Carotid Bifurcation: plaque formation. Maximum Peak Systolic velocity: 78 cm/sec: End-diastolic velocity 25 cm/sec. 3. Internal Carotid Artery: Plaque description: 3.1. Proximal Segment: Peak systolic velocity 89 cm/sec: End-diastolic velocity 36 cm/sec - % stenosis 3.2. Middle Segment: Peak systolic velocity 81 cm/sec: End-diastolic velocity 37 cm/sec - % stenosis 3.3. Distal Segment: Peak systolic velocity 61 cm/sec: End-diastolic velocity 32 cm/sec - % stenosis 4. External Carotid Artery: No significant focal plaque formation. Peak systolic velocity 83 cm/sec 5. ICA/CCA Ratio: 0.9 VERTEBRAL ARTERIES: 1. Right Vertebral Artery: The right vertebral artery flow direction is antegrade. 2. Left Vertebral Artery: The left vertebral artery flow direction is antegrade. OTHER FINDINGS: 1. Right Brachial Blood pressure: 133 mmHg. 2. Left Brachial Blood pressure: 130 mmHg. IMPRESSION: RIGHT: Duplex scan does not suggest hemodynamically significant stenosis of the right extracranial carotid arteries. LEFT: Duplex scan does not suggest hemodynamically significant stenosis of the left extracranial carotid arteries.
--- NOTE | 2018-07-30 14:57 | CP.PCM.DIS ---
Provider - Provider Date of Admission: 07/29/18 14:45 Attending physician: Ginger Glez DO Consults: 07/29/18 16:36 Physician Consult Routine Comment: Consulting Provider: Arturo Marquez Consulting Physician: Arturo Marquez Reason for Consult: Evaluate for seizure 07/29/18 17:54 Physician Consult Routine Comment: Consulting Provider: Carolyn Quinn Consulting Physician: Carolyn Quinn Reason for Consult: anxiety Time Spent in preparation of Discharge (in minutes): 45 Diagnosis - Discharge Diagnosis (1) Vision loss, bilateral Status: Resolved (2) Headache Status: Chronic (3) Numbness of foot Status: Resolved Hospital Course - Lab Results Lab Results: Most Recent Lab Values WBC 4.2 K/uL (4.8-10.8) L 07/30/18 07:30 RBC 3.91 Mil/uL (3.80-5.20) 07/30/18 07:30 Hgb 12.6 g/dL (11.0-16.0) 07/30/18 07:30 Hct 37.3 % (34.0-47.0) 07/30/18 07:30 MCV 95.5 fL (81.0-99.0) 07/30/18 07:30 MCH 32.3 pg (27.0-31.0) H 07/30/18 07:30 MCHC 33.9 g/dL (33.0-37.0) 07/30/18 07:30 RDW 12.6 % (11.5-14.5) 07/30/18 07:30 Plt Count 263 K/uL (130-400) 07/30/18 07:30 MPV 8.9 fL (7.2-11.7) 07/30/18 07:30 Neut % (Auto) 53.4 % (50.0-75.0) 07/30/18 07:30 Lymph % (Auto) 33.8 % (20.0-40.0) 07/30/18 07:30 Tillman % (Auto) 9.8 % (0.0-10.0) 07/30/18 07:30 Eos % (Auto) 2.5 % (0.0-4.0) 07/30/18 07:30 Baso % (Auto) 0.5 % (0.0-2.0) 07/30/18 07:30 Neut # (Auto) 2.2 K/uL (1.8-7.0) 07/30/18 07:30 Lymph # (Auto) 1.4 K/uL (1.0-4.3) 07/30/18 07:30 Tillman # (Auto) 0.4 K/uL (0.0-0.8) 07/30/18 07:30 Eos # (Auto) 0.1 K/uL (0.0-0.7) 07/30/18 07:30 Baso # (Auto) 0.0 K/uL (0.0-0.2) 07/30/18 07:30 ESR 10 mm/hr (0-20) 07/30/18 07:30 PT 12.5 SECONDS (9.7-12.2) H 07/29/18 13:32 INR 1.1 07/29/18 13:32 APTT 30.9 SECONDS (21-34) 07/29/18 13:32 Sodium 139 mmol/L (132-148) 07/30/18 07:30 Potassium 3.8 mmol/L (3.6-5.2) 07/30/18 07:30 Chloride 105 mmol/L (98-107) 07/30/18 07:30 Carbon Dioxide 24 mmol/L (22-30) 07/30/18 07:30 Anion Gap 13 (10-20) 07/30/18 07:30 BUN 11 mg/dL (7-17) 07/30/18 07:30 Creatinine 0.5 mg/dL (0.7-1.2) L 07/30/18 07:30 Est GFR ( Amer) > 60 07/30/18 07:30 Est GFR (Non-Af Amer) > 60 07/30/18 07:30 Random Glucose 86 mg/dL (65-105) 07/30/18 07:30 Hemoglobin A1c 5.5 % (4.2-6.5) 07/30/18 07:30 Calcium 8.1 mg/dl (8.6-10.4) L 07/30/18 07:30 Phosphorus 3.5 mg/dL (2.5-4.5) 07/30/18 07:30 Magnesium 1.6 mg/dL (1.6-2.3) 07/30/18 07:30 Total Bilirubin 0.7 mg/dL (0.2-1.3) 07/30/18 07:30 AST 20 U/L (14-36) 07/30/18 07:30 ALT 17 U/L (9-52) 07/30/18 07:30 Alkaline Phosphatase 65 U/L (38-126) 07/30/18 07:30 Total Creatine Kinase 34 U/L (30-135) 07/30/18 07:30 Troponin I < 0.0120 ng/mL (0.00-0.120) 07/30/18 07:30 Total Protein 6.5 g/dL (6.3-8.3) 07/30/18 07:30 Albumin 3.7 g/dL (3.5-5.0) 07/30/18 07:30 Globulin 2.8 gm/dL (2.2-3.9) 07/30/18 07:30 Albumin/Globulin Ratio 1.3 (1.0-2.1) 07/30/18 07:30 Triglycerides 72 mg/dL (0-149) 07/30/18 07:30 Cholesterol 151 mg/dL (0-199) 07/30/18 07:30 LDL Cholesterol Direct 92 mg/dL (0-129) 07/30/18 07:30 HDL Cholesterol 44 mg/dL (30-70) 07/30/18 07:30 Lipase 127 U/L (23-300) 07/29/18 13:32 Vitamin B12 459 pg/mL (239-931) 07/30/18 07:30 Folate 13.8 ng/mL 07/30/18 07:30 Free T4 1.24 ng/dL (0.78-2.19) 07/30/18 07:30 TSH 3rd Generation 0.52 mIU/L (0.46-4.68) 07/30/18 07:30 Urine Color Straw (YELLOW) 07/29/18 13:32 Urine Clarity Clear (Clear) 07/29/18 13:32 Urine pH 7.0 (5.0-8.0) 07/29/18 13:32 Ur Specific [place] 1.003 (1.003-1.030) 07/29/18 13:32 Urine Protein Negative mg/dL (NEGATIVE) 07/29/18 13:32 Urine Glucose (UA) Normal mg/dL (Normal) 07/29/18 13:32 Urine Ketones Negative mg/dL (NEGATIVE) 07/29/18 13:32 Urine Blood 1+ (NEGATIVE) H 07/29/18 13:32 Urine Nitrate Negative (NEGATIVE) 07/29/18 13:32 Urine Bilirubin Negative (NEGATIVE) 07/29/18 13:32 Urine Urobilinogen Normal mg/dL (0.2-1.0) 07/29/18 13:32 Ur Leukocyte Esterase Neg Jacky/uL (Negative) 07/29/18 13:32 Urine WBC (Auto) < 1 /hpf (0-5) 07/29/18 13:32 Urine RBC (Auto) < 1 /hpf (0-3) 07/29/18 13:32 Ur Squamous Epith Cells 1 /hpf (0-5) 07/29/18 13:32 Urine HCG, Qual Negative (NEGATIVE) 07/29/18 13:32 - Hospital Course Hospital Course: PGY-1 Medicine H&P for Dr. Glez CC: Dizziness HPI: Patient is a 48 year old female with a past medical history of seizures who presents to the ED today with dizziness, generalized weakness, and right foot weakness. Symptoms began when she was at work yesterday while lifting boxes. Patients complains of dry mouth and bilateral blurry vision. Patient states that all her symptoms have resolved. She admits to be under a lot of stress, she states her family in [facility] has been having trouble with their living conditions. She admits to be only sleeping for 4-5 hours each night for the last 3 months. Patient denies any recent travel, recent sickness, or sick contacts. Denies fever, chills, chest pain, SOB, nausea, vomiting, constipation, or diarrhea. 12-point ROS reviewed and negative except mentioned in HPI. PMHx: Epilepsy (between 9-12 years old) PSH: 2 C-sections, hemorroidectomy Allergies: NKDA FH: Father with kidney disease, uncle with diabetes. SH: Denies tobacco, alcohol, and illicit drugs. Lives with and children. Works in a factory. Medications: Denies PMD: Dr. Sanders Pt was admitted to r/o possible CVA CT Head, Brain MRI and Carotid dopplers all neg for acute pathology Seen by Neuro Dr Marquez and Psych Dr Soto- symptoms related to emotional stress. dc home on remeron 15 hs Discharge Exam - Head Exam Head Exam: ATRAUMATIC, NORMAL INSPECTION, NORMOCEPHALIC - Additional Findings Additional findings: - Constitutional Appears: Non-toxic, No Acute Distress - Head Exam Head Exam: ATRAUMATIC, NORMAL INSPECTION, NORMOCEPHALIC - Eye Exam Eye Exam: EOMI, Normal appearance, PERRL Pupil Exam: NORMAL ACCOMODATION, PERRL - ENT Exam ENT Exam: Mucous Membranes Moist, Normal Exam - Neurological Exam Neurological exam: Alert, CN II-XII Intact, Normal Gait, Oriented x3, Reflexes Normal - Expanded Neurological Exam Expanded Patient oriented to: person, place, time Speech: Fluid Speech Cranial nerves: EOM's Intact: Normal, Facial Palsey w/Forehead Movement: Normal, Facial Palsey w/o Forehead Movement: Normal, Facial Sensation: Normal, Nystagmus: Normal, Tongue Deviation: Normal Ataxia: No Cerebellar Function: Finger to Nose: Normal, Romberg: Normal Upper motor neuron: Pronator Drift: Normal Sensory exam: Lower Extremity Light Touch: Normal, Upper Extremity Light Touch: Normal Neuro motor strength exam: Left Upper Extremity: 5, Right Upper Extremity: 5, Left Lower Extremity: 5, Right Lower Extremity: 5 DTR: Brachioradialis Left: 2+, Brachioradialis Right: 2+, Patellar Left: 2+, Patellar Right: 2+ - Psychiatric Exam Psychiatric exam: Normal Affect, Normal Mood Discharge Plan - Discharge Medications Prescriptions: Famotidine [Pepcid] 20 mg PO BID #14 tab Mirtazapine [Remeron] 15 mg PO HS #30 tab - Follow Up Plan Condition: STABLE Disposition: HOME/ ROUTINE Instructions: Headache, Adult (DC), Dizziness, Nonvertigo, (DC), Famotidine, Mirtazapine Additional Instructions: Pt is to be dc home with the following medications Pepcid 20mg BID Remeron 15mg PO HS Please follow up in clinic within [address] Sanders Pt es estar en casa con los siguientes medicamentos. Pepcid 20 mg BID Remeron HS Por favor krystal un seguimiento en la clnica dentro de [address] Sanders Referrals: Hilary Sanders MD [Staff Provider] -
[2018-07-30] MEDS ORDERED: Lidocaine 5% Patch TD STA (15:06)
[2018-07-30] MEDS ORDERED: Pneumococcal 23-Valent Vaccine IM ONE (15:47)
[2018-07-30 17:32] VITALS: BP 109/72; PULSE 74; RESP 20; TEMP 98.2
[2018-07-31] MEDS ORDERED: Pneumococcal 23-Valent Vaccine IM ONE (10:00)
--- NOTE | 2018-08-02 13:28 | CARD ---
APPROVED REPORT Date of service: 07/30/2018 EKG Measurement Heart [id number] <Conclusion> Normal sinus rhythm with sinus arrhythmia Normal ECG
== END 2018-07-30 18:11 | disposition home or self-care (01) ==
LOC: C.ER 12:18 → C.9E 14:45 → C.6T 16:28
PROVIDERS: ADMIT Hospitalist; ATTEND Hospitalist
DX: H54.7 Unspecified visual loss (principal); R51 Headache; G40.909 Epilepsy, unspecified, not intractable, without status epilepticus; G35 Multiple sclerosis; F41.9 Anxiety disorder, unspecified; E11.9 Type 2 diabetes mellitus without complications; H54.3 Unqualified visual loss, both eyes; I65.29 Occlusion and stenosis of unspecified carotid artery; Z83.3 Family history of diabetes mellitus; Z84.1 Family history of disorders of kidney and ureter
CPT/HCPCS: 36415; 70450; 70551; 71045; 80053; 80061; 81001; 82550; 82607; 82746; 83036; 83690; 83735; 84100; 84439; 84443; 84484; 84703; 85025; 85610; 85651; 85730; 86039; 90471; 90732; 93880; 96360; 96374; 99285; C9113; G0378; J1650; J7030; J7040